=== PATIENT | female | born 1965 ===

== ENCOUNTER 2023-05-26 12:46 | Emergency (ER) | payer MEDICAID, SELFPAY ==
[2023-05-26 12:48] VITALS: BP 175/75; PULSE 101; RESP 20; TEMP 36.3; O2SAT 96; BMI 34.3
--- NOTE | 2023-05-26 13:20 | ED.GENADULT ---
HPI - General Adult General Time Seen by Provider: 13:20 Date Seen: 05/26/23 Chief complaint: Bug Bite Stated complaint: Allergic reaction, trouble breathing Time Seen by Provider: 05/26/23 13:20 Source: patient Mode of arrival: ambulatory Limitations: no limitations History of Present Illness HPI narrative: Renae is a 57-year-old female past medical history includes diabetes mellitus type 2 who presents emergency department via private car with a facial bug bite. Patient states about 36 hours ago she was sleeping in a tractor trailer, around 3-4 a.m. she noticed something on her lip and wiped it away, she noticed a small bite to the right upper lip area, there was some increased redness but no swelling, during that time the swelling is progressively got worse, the bite area has not been draining but the lip has become more hard, she denies any fevers or chills, she has no history of any MRSA. No history of any bug bites in the past or cellulitis. She denies any difficulty with breathing or trouble swallowing, she did notice some swelling on the right side of her face and some pain in the neck area. When she woke up this morning the swelling had increased she did take some Benadryl. No other concerns at this time. Related Data Previous Rx's Medication Instructions Recorded cefadroxil 500 mg capsule 500 mg PO BID 7 days #14 caps 05/26/23 prednisone 20 mg tablet 20 mg PO DAILY #7 tabs 05/26/23 Allergies Allergy/AdvReac Type Severity Reaction Status Date / Time aspirin AdvReac Mild Verified 05/26/23 12:52 Review of Systems Status of ROS: Reports: 10 or more systems reviewed and unremarkable except as noted in History and below PFSH PFS Social History Smoking Status: Never smoker Do you use any of these nicotine containing products: None Second hand tobacco smoke exposure: No How often do you have a drink containing alcohol: never How often do you have six or more drinks on one occasion: Never AUDIT-C Alcohol total score: 0 Non-prescribed substance use: denies use service: No Exam Narrative: Exam Narrative: General: No obvious distress sitting comfortably, she is nontoxic in appearance HEENT: Tympanic membranes within normal limits bilaterally, oropharynx is clear and moist, there is a small open papule right upper lip, no fluctuance but there is induration and swelling, slight swelling to the right lower cheek and mandibular area, no real erythema, tender submandibular lymph nodes. Neck: Supple, full range of motion Lungs: Clear to auscultation bilaterally, no wheezing or stridor Heart: Normal sinus rhythm S1-S2 Muscle skeletal: Moving upper lower extremities with no difficulty Neuro: Alert awake and oriented x3 Const: Vital Signs, click to edit/add: Vital Signs - 24 hr 05/26/23 12:48 Temperature 97.3 F L Pulse Rate [Right Pulse Oximeter] 101 H Respiratory Rate 20 Blood Pressure [Ri ght Upper Arm] 175/75 H Pulse Oximetry 96 Oxygen Delivery Me thod Room Air Course Course ED Course: 1:30 PM: AIDET performed, based on history and physical exam, looks like a developing cellulitis with adenopathy, will give her IM dose Rocephin 1 g and 10 mg IM Decadron, no labs to be obtained, likely discharge with Duricef 500 mg b.i.d. over the next 7 days. Patient should follow-up primary care provider over the next 7-10 days, return precautions given. Vital Signs Vital signs: Initial Vital Signs Temperature 97.3 F L 05/26/23 12:48 Temperature Source Temporal Artery Scan 05/26/23 12:48 Pulse Rate 101 H 05/26/23 12:48 Pulse Rhythm Regular 05/26/23 12:48 Pulse Strength 3+ Normal 05/26/23 12:48 Respiratory Rate 20 05/26/23 12:48 Blood Pressure 175/75 H 05/26/23 12:48 Blood Pressure Mean 108 H 05/26/23 12:48 Blood Pressure Position Sitting 05/26/23 12:48 Pulse Oximetry 96 05/26/23 12:48 Oxygen Delivery Method Room Air 05/26/23 12:48 Vital Signs Temperature 97.3 F L 05/26/23 12:48 Pulse Rate 101 H 05/26/23 12:48 Respiratory Rate 20 05/26/23 12:48 Blood Pressure 175/75 H 05/26/23 12:48 Pulse Oximetry 96 05/26/23 12:48 Oxygen Delivery Method Room Air 05/26/23 12:48 Temperature 97.3 F L 05/26/23 12:48 Pulse Rate 101 H 05/26/23 12:48 Respiratory Rate 20 05/26/23 12:48 Blood Pressure 175/75 H 05/26/23 12:48 Pulse Oximetry 96 05/26/23 12:48 Oxygen Delivery Method Room Air 05/26/23 12:48 Discharge Plan Discharge Clinical Impression: Cellulitis of face Patient Disposition: Home, Self-Care Instructions: Cellulitis (ED) Additional Instructions: Duricef 500 mg twice daily over the next 7 days, prednisone 20 mg daily over the next 2 days. May continue with Benadryl 50 mg every 4-6 hours, follow-up with primary care provider over the next 7-10 days, return if worsening symptoms Discharge Diet: Regular Prescriptions: New cefadroxil 500 mg capsule 500 mg PO BID 7 Days Qty: 14 0RF prednisone 20 mg tablet 20 mg PO DAILY Qty: 7 0RF Follow Up/Referrals: Provider,Not a Local [Primary Care Provider] - Stand Alone Forms: MyHealth Info Instructions
[2023-05-26] MEDS: cefTRIAXone 1 GM VIAL IM (13:39)
[2023-05-26] MEDS: dexAMETHasone 10 MG/ML inj IM (13:40)
[2023-05-26] MEDS: LIDOCAINE 1% 5 ml (pf) 5 ML VIAL 2.1 ML IM (13:41)
--- OUTSIDE RECORDS SUMMARY | 2023-05-26 14:02 | XMS_ITS ---
Author Name Natasha Salinas Address [address], [place] [id number] [facility] Address [address], [place] [id number] Care Team Providers Care Telemarketing Sales Representative Name Role Phone Natasha Salinas Unavailable [phone] PROBLEMS Type Condition ICD9-CM Code [id number] Code Onset Dates Condition Status SNOMED Code Problem Moderate persistent asthmatic bronchitis with acute exacerbation J45.41 Active 673927536170281 Problem Severe persistent asthma with acute exacerbation J45.51 Active 826936580 Problem Controlled type 2 diabetes mellitus without complication, without long-term current use of insulin E11.9 Active [id number] Problem Dyslipidemia E78.5 Active [id number] ALLERGIES Substance Reaction Event Type Date Status davis Unknown Non Drug Allergy Nov, Active ENCOUNTERS Encounter Location Date Diagnosis [address] [id number] Nov, [address] [id number] Nov, [address] [id number] Nov, Controlled type 2 diabetes mellitus without complication, without long-term current use of insulin E11.9 ; Dyslipidemia E78.5 and Motion sickness, initial encounter T75.3XXA [facility] [address] [place] [address] Oct, Screening for colon cancer Z12.11 and Encounter for screening mammogram for malignant neoplasm of breast Z12.[address] [id number] Apr, Dyslipidemia E78.5 ; Controlled type 2 diabetes mellitus without complication, without long-term current use of insulin E11.9 ; Nutritional counseling Z71.3 and Exercise counseling Z71.82 [facility] [address], [place] [id number] Apr, Dyslipidemia E78.5 [facility] [address], [place] [id number] Feb, [address] [id number] Nov, Controlled type 2 diabetes mellitus without complication, without long-term current use of insulin E11.9 and Dyslipidemia E78.[address] [id number] Sep, [address] [id number] Aug, Controlled type 2 diabetes mellitus without complication, without long-term current use of insulin E11.9 ; Dyslipidemia E78.5 and Acute bronchitis, unspecified organism J20.[address] [id number] Aug, Controlled type 2 diabetes mellitus without complication, without long-term current use of insulin E11.9 ; Severe persistent asthma with acute exacerbation J45.51 and Moderate persistent asthmatic bronchitis with acute exacerbation J45.[address] [id number] Jun, [facility] [address], [place] [id number] Jun, Controlled type 2 diabetes mellitus without complication, without long-term current use of insulin E11.[address] [id number] May, [address] [id number] May, Encounter for screening for malignant neoplasm of cervix Z12.4 ; Encounter for screening for infections with a predominantly sexual mode of transmission Z11.3 ; Type 2 diabetes mellitus without complication, without long-term current use of insulin E11.9 and Encounter for screening mammogram for breast cancer Z12.31 [facility] [address] [place], [place] [id number] 14 Mar, 2021 Controlled type 2 diabetes mellitus without complication, without long-term current use of insulin E11.9 and Dyslipidemia E78.[address] [id number] Dec, Controlled type 2 diabetes mellitus without complication, without long-term current use of insulin E11.9 ; Screening for viral disease Z11.59 and Dyslipidemia E78.[address] [id number] 27 Dec, [address] [id number] Aug, [address] [id number] Aug, Controlled type 2 diabetes mellitus without complication, without long-term current use of insulin E11.9 and Encounter for general adult medical examination with abnormal findings Z00.01 IMMUNIZATIONS No Known Immunizations SOCIAL HISTORY Qualifiers Date Never Smoker REASON FOR REFERRAL FUNCTIONAL STATUS PLAN OF CARE Activity Details Follow Up 6 Months Reason:CPE/ FBW Future Appointment Provider Name:Toby Medrano, 2023-06-02 09:15:00 AM, [address] [place] [address], [id number], Future Appointment Provider Name:Jennifer Ashford, 2023-06-20 02:00:00 PM, [address], [place], [place], [id number], Pending Test colonoscopy VITAL SIGNS Weight 200.6 lbs 2022-11-30 Weight 192.8 lbs 2022-05-06 Weight 188 lbs 2021-12-07 Weight 196.8 lbs 2021-09-02 Weight 196 lbs 2021-08-27 Weight 217.2 lbs 2021-05-29 Weight 219.8 lbs 2021-03-25 Weight 218.6 lbs 2021-01-07 Weight 209.0 lbs 2020-08-19 Height 65 in 2022-11-30 Height 65 in 2022-05-06 Height 65 in 2021-12-07 Height 65 in 2021-09-02 Height 65 in 2021-08-27 Height 65 in 2021-05-29 Height 65 in 2021-03-25 Height 5 ft 5 in in 2021-01-07 Height 5 ft 5 in in 2020-08-19 BMI 33.38 2022-11-30 BMI 32.08 2022-05-06 BMI 31.28 2021-12-07 BMI 32.75 2021-09-02 BMI 32.61 2021-08-27 BMI 36.14 2021-05-29 BMI 36.57 2021-03-25 BMI 36.37 2021-01-07 BMI 34.78 2020-08-19 Temperature 97.1 degrees Fahrenheit Temperature 98.4 degrees Fahrenheit Temperature 97.9 degrees Fahrenheit Temperature 98.2 degrees Fahrenheit Temperature 97.0 degrees Fahrenheit Temperature 97.5 degrees Fahrenheit Temperature 98.2 degrees Fahrenheit Temperature 96.9 degrees Fahrenheit Respiratory Rate 16 /min 2022-11-30 Respiratory Rate 16 /min 2021-03-25 Respiratory Rate 16 /min 2020-08-19 Oximetry 98 % 2021-09-02 Oximetry 94% % 2021-08-27 Blood pressure systolic 132 Blood pressure diastolic 80 2022-11 MEDICATIONS Medication Instructions Dosage Frequency Start Date End Date Duration Status scopolamine 1 mg/72 hr applied topically every 72 hours 1 film(s) Nov, 21 days Active Ondansetron Hydrochloride 4 mg orally bid (As needed for motion sickness) 1 tab(s) Nov, 21 days Active MetFORMIN Hydrochloride 500 mg orally 2 times a day 1 tab(s) 12h 90 days Active Pravastatin Sodium 10 mg orally bid 1 tab(s) 12h Apr, 90 days Active glipiZIDE 5 mg orally once a day 1 tab(s) 24h Apr, 90 days Active Albuterol (Eqv-Proventil HFA) 90 mcg/inh INHALE 2 PUFFS BY MOUTH EVERY 6 HOURS 16 Active PROCEDURES Procedure Date Ordered Result Body Site PULSE OXIMETRY Aug 27, 2021 HPV, DNA, AMP PROBE May 29, 2021 CAPILLARY BLOOD DRAW May 29, 2021 SPECIMEN HANDLING January 07, 2021 SPECIMEN HANDLING December 07, 2021 COMPLETE CBC W/AUTO DIFF WBC Aug 19, 2020 HGB GLYCATED Aug 19, 2020 CAPILLARY BLOOD DRAW Aug 27, 2021 SPECIMEN HANDLING May 29, 2021 COMPREHEN METABOLIC PANEL Aug 19, 2020 SAVANAH 2 SARS ANTIGEN January 07, 2021 GLUCOSE CUONG Aug 19, 2020 LIPID PANEL Sep 02, 2021 HGB GLYCATED November 30, 2022 HGB GLYCATED December 07, 2021 CAPILLARY BLOOD DRAW Aug 19, 2020 HGB GLYCATED Sep 02, 2021 SPECIMEN HANDLING Aug 19, 2020 CAPILLARY BLOOD DRAW Sep 02, 2021 N.GONORRHOEAE, DNA, AMP PROB May 29, 2021 BODY MASS INDEX DOCD May 06, 2022 HGB GLYCATED May 29, 2021 CAPILLARY BLOOD DRAW May 06, 2022 PULSE OXIMETRY Sep 02, 2021 COMPREHEN METABOLIC PANEL Sep 02, 2021 GLUCOSE CUONG May 29, 2021 DETECT AGENT NOS, DNA, AMP May 29, 2021 GLUCOSE CUONG Sep 02, 2021 GLUCOSE CUONG May 06, 2022 CYTOPATH C/V AUTO FLUID REDO May 29, 2021 SPECIMEN HANDLING Sep 02, 2021 CHYLMD TRACH, DNA, AMP PROBE May 29, 2021 GLUCOSE CUONG Aug 27, 2021 HGB GLYCATED January 07, 2021 COMPREHEN METABOLIC PANEL January 07, 2021 HGB GLYCATED May 06, 2022 RESULTS Name Result Date Reference Range *Hgb A1C (In-House) 2022-11-30 Hgb A1C 6.3 MG Mammo Digital Screening Bilateral 2022 See Below For Report *Hgb A1C (In-House) 2022-05-06 Hgb A1C 6.0 *Glucose-Blood(In-House) 2022-05-06 Glucose-Blood 105 *Hgb A1C (In-House) 2021-12-07 Hgb A1C 6.1% *Hgb A1C (In-House) 2021-09-02 Hgb A1C 6.6 Comp. Metabolic Panel (14) 2021-09-02 Glucose 135 65-99 BUN 17 6-24 Creatinine 0.70 0.57-1.00 eGFR If NonAfricn Am 97 >59 eGFR If Africn Am 112 >59 BUN/Creatinine Ratio 24 9-23 Sodium 141 134-144 Potassium 4.0 3.5-5.2 Chloride 100 96-106 Carbon Dioxide, Total 25 20-29 Calcium 10.1 8.7-10.2 Protein, Total 7.3 6.0-8.5 Albumin 4.5 3.8-4.9 Globulin, Total 2.8 1.5-4.5 A/G Ratio 1.6 1.2-2.2 Bilirubin, Total 0.8 0.0-1.2 Alkaline Phosphatase 76 44-121 AST (SGOT) 10 0-40 ALT (SGPT) 16 0-32 Lipid Panel 2021-09-02 Cholesterol, Total 199 100-199 Triglycerides 118 0-149 HDL Cholesterol 73 >39 VLDL Cholesterol Ben 21 5-40 LDL Chol Calc (RUST) 105 0-99 Comment: *Glucose-Blood(In-House) 2021-09-02 Glucose-Blood 160 F *Glucose-Blood(In-House) 2021-08-27 Glucose-Blood R-121 MG Mammo Digital Screening Bilateral 2020 See Below For Report *Hgb A1C (In-House) 2021-05-29 Hgb A1C 7.7 *Glucose-Blood(In-House) 2021-05-29 Glucose-Blood 184 F Pap IG, Aptima HPV + Ct/Ng/Tv 2021-05-29 DIAGNOSIS: Specimen adequacy: Clinician provided ICD10: Performed by: . . Note: Test Methodology: HPV Aptima Negative Negative Chlamydia, Nuc. Acid Amp Negative Neg ative Gonococcus, Nuc. Acid Amp Negative Ne gative Trich vag by FLORIDALMA Negative Negative Comp. Metabolic Panel (14) 2021-01-07 Glucose 62 65-99 BUN 13 6-24 Creatinine 0.73 0.57-1.00 eGFR If NonAfricn Am 92 >59 eGFR If Africn Am 106 >59 BUN/Creatinine Ratio 18 9-23 Sodium 146 134-144 Potassium 4.1 3.5-5.2 Chloride 107 96-106 Carbon Dioxide, Total 23 20-29 Calcium 10.7 8.7-10.2 Protein, Total 7.4 6.0-8.5 Albumin 4.5 3.8-4.9 Globulin, Total 2.9 1.5-4.5 A/G Ratio 1.6 1.2-2.2 Bilirubin, Total 0.7 0.0-1.2 Alkaline Phosphatase 87 39-117 AST (SGOT) 17 0-40 ALT (SGPT) 19 0-32 Hemoglobin A1c 2021-01-07 Hemoglobin A1c 7.2 4.8-5.6 *Savanah 2 SARS Antigen screen 2021-01-07 Comp. Metabolic Panel (14) 2020-08-19 Glucose 223 65-99 BUN 10 6-24 Creatinine 0.69 0.57-1.00 eGFR If NonAfricn Am 98 >59 eGFR If Africn Am 113 >59 BUN/Creatinine Ratio 14 9-23 Sodium 142 134-144 Potassium 4.3 3.5-5.2 Chloride 103 96-106 Carbon Dioxide, Total 20 20-29 Calcium 9.9 8.7-10.2 Protein, Total 7.3 6.0-8.5 Albumin 4.5 3.8-4.9 Globulin, Total 2.8 1.5-4.5 A/G Ratio 1.6 1.2-2.2 Bilirubin, Total 0.8 0.0-1.2 Alkaline Phosphatase 91 39-117 AST (SGOT) 18 0-40 ALT (SGPT) 21 0-32 Hemoglobin A1c 2020-08-19 Hemoglobin A1c 6.6 4.8-5.6 CBC With Differential/Platelet 2020-08-19 WBC 6.3 3.4-10.8 RBC 4.59 3.77-5.28 Hemoglobin 14.0 11.1-15.9 Hematocrit 42.8 34.0-46.6 MCV 93 79-97 MCH 30.5 26.6-33.0 MCHC 32.7 31.5-35.7 RDW 12.5 11.7-15.4 Platelets 277 150-450 Neutrophils 50 Not Estab. Lymphs 37 Not Estab. Monocytes 6 Not Estab. Eos 6 Not Estab. Basos 1 Not Estab. Immature Cells Neutrophils (Absolute) 3.1 1.4-7 .0 Lymphs (Absolute) 2.3 0.7-3.1 Monocytes(Absolute) 0.4 0.1-0.9 Eos (Absolute) 0.4 0.0-0.4 Baso (Absolute) 0.1 0.0-0.2 Immature Granulocytes 0 Not Es tab. 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, PA for Scopolamine, PA for Scopolamine IMG, 6 mon f/u r/s, 6 MON F/U, mammogram/colonoscopy, 4 MONTH T2 DM CHECK, Refills Pravastatin 20mg, 4 MONTH T2 DM CHECK, est with new provider, 4MONTH T2 DM CHECK, COVID-Triage, 3 MO TDM2 FOLLOW UP, 3 MON T2DM F/U, Insurance Suggesting Lisinopril, 3 Mo F/U -- r/s from 08/28/2021 [facility] CX 'd, 3 Mon F/U , Poss Bronchitis, ePrescription CancelRx response, Concerns about prescription , Message , 3MTH F/U/PAP, med refills 97.5, 3MTH F/U/PAP, Med Refill/ A1C check , Med refills / Check A1C, Med Refills , 3 MONTH F/U, New Patient / Annual Outreach, Bilingual Teacher Assistant est care Insurance Providers Health Insurance Type Health Plan Insurance Address Health Plan Insurance Phone Health Plan Insurance Name Health Plan Coverage Dates Member ID Patient Relationship to Subscriber Patient Address Patient Phone Patient Name Patient Date of Subscriber ID Subscriber Name Subscriber Date of Group No MEDICAID [address] [address] [facility] [id number] MEDICAID self KHANG HUGHES [id number] 2 ANDREWS 4.0 MED[employer]ION COMPLETE [employer] 1 [facility] [id number] ANDREWS 4.0 [employer] COMPLE[employer] C[employer] self KHANG HUGHES [id number] ANDREWS 4.0 MED[employer]ION COMPLETE C[employer] [address] [facility] [id number] ANDREWS 4.0 [employer] COMPLE[employer] self KHANG HUGHES [id number]
--- OUTSIDE RECORDS SUMMARY | 2023-05-26 14:03 | XMS_ITS | Patient Health Record ---
Author Name Unknown Organization [facility] Address [address], [place] [id number] Care Team Providers Care Steam Table Associate Name Role Phone ANA PALAFOX Unavailable ALLERGIES No Known Allergies REASON FOR REFERRAL No Information SOCIAL HISTORY Sex Assigned At : Social History Observation Description Sex Assigned At Unknown VITAL SIGNS Blood pressure diastolic 83 mm Hg 01/20/2023 Lucy cked in by Zi Rice LDA Blood pressure systolic 134 mm Hg 01/20/2023 Chec ked in by Zi Rice LDA Encounters Encounter Location Date Provider Diagnosis [facility] [address], [place] [id number] 01/20/2023 ANA PALAFOX Dental examination Z01.20 ASSESSMENTS Encounter Date Diagnosis Assessment Notes Treatment Notes Treatment Clinical Notes 01/20/2023 Dental examination (ICD-10 - Z01.20) Patient Educated with: Dental Emergencies-E.pdf (Dental Emergencies-E.pdf ) PLAN OF TREATMENT No Information Insurance Providers Payer Name Payer Address Payer Phone Subscriber Number Group Number Insured Name Patient Relationship to Insured Coverage Start Date Coverage End Date [facility] [employer] [employer] [address] [address] [place], [place] [id number] Brent Renae Self - patient is the insured .[employer] [address] [place] [id number] KennedyJac stevency Self - patient is the insured MEDICAL (GENERAL) HISTORY Surgical History Surgery Date(Month/Year)
== END 2023-05-26 14:56 | disposition home or self-care (01) ==
LOC: ED 14:00
PROVIDERS: Emergency Provider Student in an Organized Health Care Education/Training Program
DX: L03.211 Cellulitis of face (principal)
CPT/HCPCS: 99283; 99284; J0696; J1100